=== PATIENT | male | born 1975 | race Caucasian/White ===

== ENCOUNTER 2017-04-13 19:56 | Emergency (ER) | payer MEDICAID | END 2017-04-13 23:00 | disposition left against medical advice (07) | LOC: ER 22:02 | DX: Z53.21 Procedure and treatment not carried out due to patient leaving prior to being seen by health care provider (principal) ==

== ENCOUNTER 2017-06-09 09:22 | Emergency (ER) | payer MEDICAID ==
[~2017-06-09] VITALS: Ht 177.8 cm; Wt 84.0 kg
[2017-06-09 10:01] LABS: BASOPHILS % 0.5 % (0.0-2.0); EOSINOPHILS % 10.3 % (0.0-5.0); HEMATOCRIT. 39.7 % (42.0-52.0); LYMPHOCYTES % 17.1 % (20.0-50.0); MEAN CORPUSCULAR HEMOGLOBIN 33.2 pg (28.0-32.0); MEAN CORPUSCULAR VOLUME 94.2 fL (80.0-94.0); MEAN PLATELET VOLUME 9.2 fl (7.4-10.4); MONOCYTES % 6.8 % (2.0-8.0); NEUTROPHILS % 65.3 % (40.0-76.0); PLATELET 175 x1000/uL (130-400); RED BLOOD CELL COUNT 4.21 mill/uL (4.7-6.1); RED CELL DISTRIBUTION WIDTH 13.7 % (11.6-14.6)
[2017-06-09 10:09] LABS: PROTHROMBIN TIME 10.8 sec (9.4-11.6)
[2017-06-09 10:18] LABS: CARBON DIOXIDE 24 mEq/L (21-32); CHLORIDE 109 mEq/L (98-107); ETHANOL BLOOD < 10 mg/dL
[2017-06-09 10:20] LABS: TROPONIN I < 0.02 ng/mL (0.00-0.04)
[2017-06-09 11:06] LABS: CLARITY URINE CLEAR (CLEAR); COLOR URINE YELLOW (YELLOW); GLUCOSE URINE NEGATIVE (NEGATIVE); KETONES URINE NEGATIVE (NEGATIVE); LEUKOCYTE ESTERASE URINE NEGATIVE (NEGATIVE); NITRITE URINE NEGATIVE (NEGATIVE); OCCULT BLOOD URINE NEGATIVE (NEGATIVE); PROTEIN URINE NEGATIVE (NEGATIVE); SPECIFIC GRAVITY URINE 1.009 (1.005-1.030); UROBILINOGEN URINE 0.2 E.U./dL (0.2-1.0)
[2017-06-09 11:23] LABS: *AMPHETAMINES SCREEN URINE NEGATIVE (NEGATIVE); *BARBITURATES SCREEN URINE NEGATIVE (NEGATIVE); *BENZODIAZEPINES SCREEN URINE NEGATIVE (NEGATIVE); *COCAINE SCREEN URINE NEGATIVE (NEGATIVE); CANNABINOID URINE SCREEN NEGATIVE (NEGATIVE); METHADONE URINE SCREEN NEGATIVE (NEGATIVE); OPIATES URINE SCREEN NEGATIVE (NEGATIVE); PHENCYCLIDINE URINE SCREEN NEGATIVE (NEGATIVE)
[2017-06-09 12:16] VITALS: BP 142/83
== END 2017-06-09 12:17 | disposition home or self-care (01) ==
LOC: ER 09:42
DX: T39.315A Adverse effect of propionic acid derivatives, initial encounter (principal); F17.200 Nicotine dependence, unspecified, uncomplicated; Z88.8 Allergy status to other drugs, medicaments and biological substances; Y92.89 Other specified places as the place of occurrence of the external cause
CPT/HCPCS: 36415; 80053; 80305; 80307; 80329; 81003; 84484; 85025; 85610; 93005; 99285; G0482; Z7610

== ENCOUNTER 2019-08-31 13:03 | Emergency (ER) | payer MEDICAID ==
[~2019-08-31] VITALS: Ht 198.1 cm; Wt 125.0 kg
[2019-08-31] MEDS ORDERED: DEXTROSE 50% WATER 50ML SYRINGE IV ONE (16:00)
[2019-08-31 17:21] LABS: BASOPHILS % 0.6 % (0.0-2.0); EOSINOPHILS % 7.5 % (0.0-5.0); HEMATOCRIT. 41.9 % (42.0-52.0); HEMOGLOBIN. 14.1 g/dL (14.0-18.0); LYMPHOCYTES % 33.6 % (20.0-50.0); MEAN CORPUSCULAR HEMOGLOBIN 31.2 pg (28.0-32.0); MEAN CORPUSCULAR VOLUME 92.6 fL (80.0-94.0); MEAN PLATELET VOLUME 9.1 fl (7.4-10.4); MONOCYTES % 6.1 % (2.0-8.0); NEUTROPHILS % 52.2 % (40.0-76.0); PLATELET 206 x1000/uL (130-400); RED BLOOD CELL COUNT 4.52 mill/uL (4.7-6.1); RED CELL DISTRIBUTION WIDTH 13.7 % (11.6-14.6)
[2019-08-31 17:28] LABS: CHLORIDE 113 mEq/L (98-107)
[2019-08-31 18:31] VITALS: BP 130/80
== END 2019-08-31 18:35 | disposition left against medical advice (07) ==
LOC: ER 14:36 → CANBEDREQ 18:52
DX: E16.2 Hypoglycemia, unspecified (principal)
CPT/HCPCS: 36415; 71045; 80053; 82962; 83605; 84145; 84484; 85025; 93005; 99284

== ENCOUNTER 2019-10-30 07:29 | Emergency (ER) | payer MEDICAID ==
[~2019-10-30] VITALS: Ht 182.9 cm; Wt 150.0 kg
[2019-10-30] MEDS ORDERED: MORPHINE SULFATE 4 MG/ML CPJ (NOT FOR IM USE) IV ONE (08:15)
[2019-10-30 08:45] LABS: BASOPHILS % 0.7 % (0.0-2.0); HEMATOCRIT. 39.7 % (42.0-52.0); HEMOGLOBIN. 13.8 g/dL (14.0-18.0); LYMPHOCYTES % 27.5 % (20.0-50.0); MEAN CORPUSCULAR HEMOGLOBIN 31.4 pg (28.0-32.0); MEAN CORPUSCULAR VOLUME 90.9 fL (80.0-94.0); MEAN PLATELET VOLUME 9.4 fl (7.4-10.4); MONOCYTES % 8.3 % (2.0-8.0); NEUTROPHILS % 54.5 % (40.0-76.0); PLATELET 184 x1000/uL (130-400); RED BLOOD CELL COUNT 4.37 mill/uL (4.7-6.1); RED CELL DISTRIBUTION WIDTH 13.8 % (11.6-14.6)
[2019-10-30 08:52] LABS: CHLORIDE 112 mEq/L (98-107)
[2019-10-30 13:00] VITALS: BP 122/76
== END 2019-10-30 13:19 | disposition home or self-care (01) ==
LOC: ER 07:29
DX: R07.89 Other chest pain (principal); J45.909 Unspecified asthma, uncomplicated; G40.909 Epilepsy, unspecified, not intractable, without status epilepticus; Z88.8 Allergy status to other drugs, medicaments and biological substances
CPT/HCPCS: 36415; 71045; 80053; 83880; 84484; 85025; 93005; 99285

== ENCOUNTER 2022-08-01 18:27 | Emergency (ER) | payer MEDICAID ==
[~2022-08-01] VITALS: Ht 188 cm; Wt 105.0 kg
[2022-08-01 18:43] VITALS: BP 119/63
== END 2022-08-01 23:42 | disposition left against medical advice (07) ==
LOC: ER 18:27
DX: Z53.21 Procedure and treatment not carried out due to patient leaving prior to being seen by health care provider (principal)

== ENCOUNTER 2023-01-28 02:59 | Emergency (ER) | payer MEDICAID ==
[~2023-01-28] VITALS: Ht 198.1 cm; Wt 148.0 kg
[2023-01-28 03:36] VITALS: O2SAT 99
[2023-01-28 06:43] LABS: EOSINOPHILS % 10.2 % (0.0-5.0); HEMATOCRIT. 41.1 % (42.0-52.0); HEMOGLOBIN. 13.9 g/dL (14.0-18.0); LYMPHOCYTES % 40.4 % (20.0-50.0); MEAN CORPUSCULAR HEMOGLOBIN 32.1 pg (28.0-32.0); MEAN CORPUSCULAR VOLUME 94.9 fL (80.0-94.0); MEAN PLATELET VOLUME 9.3 fl (7.4-10.4); MONOCYTES % 6.6 % (2.0-8.0); NEUTROPHILS % 41.8 % (40.0-76.0); PLATELET 183 x1000/uL (130-400); RED BLOOD CELL COUNT 4.34 mill/uL (4.7-6.1); RED CELL DISTRIBUTION WIDTH 14.2 % (11.6-14.6)
[2023-01-28 06:52] LABS: CHLORIDE 113 mEq/L (98-107)
[2023-01-28 07:24] VITALS: BP 115/66; PULSE 46; RESP 16; TEMP 98.6
== END 2023-01-28 07:32 | disposition home or self-care (01) ==
LOC: ER 02:59
DX: R00.1 Bradycardia, unspecified (principal); R20.2 Paresthesia of skin; J45.909 Unspecified asthma, uncomplicated; Z98.890 Other specified postprocedural states
CPT/HCPCS: 36415; 71045; 80053; 84484; 85025; 93005; 99285

== ENCOUNTER 2023-04-25 19:51 | Emergency (ER) | payer MEDICAID, OTHER ==
[~2023-04-25] VITALS: Ht 198.1 cm; Wt 137.0 kg
[2023-04-25 20:10] VITALS: O2SAT 96
[2023-04-25 21:09] VITALS: TEMP 98.6
[2023-04-25] MEDS ORDERED: METH-653 MT (21:13)
[2023-04-25] MEDS ORDERED: IBUPROFEN 600MG TABLET PO ONE (21:15)
[2023-04-25 21:37] VITALS: BP 116/72; PULSE 59; RESP 16
== END 2023-04-25 21:39 | disposition home or self-care (01) ==
LOC: ER 19:51
DX: M54.50 Low back pain, unspecified (principal); J45.909 Unspecified asthma, uncomplicated; F20.9 Schizophrenia, unspecified; Z98.890 Other specified postprocedural states
CPT/HCPCS: 99283

== ENCOUNTER 2023-05-15 17:00 | Emergency (ER) | payer OTHER ==
[~2023-05-15] VITALS: Ht 198.1 cm; Wt 137.9 kg
[~2023-05-15 17:00] MED LIST: METH-653 MT
[2023-05-15 17:11] VITALS: BP 131/80; PULSE 81; RESP 16; TEMP 98.2; O2SAT 97
[2023-05-15] MEDS ORDERED: ONDANSETRON 4MG ODT PO ONE (17:45)
[2023-05-15] MEDS ORDERED: GLUCAGON,HUMAN RECOMBINANT 1MG/VIAL IM ONE (17:45)
[2023-05-15 18:09] LABS: BASOPHILS % 0.9 % (0.0-2.0); EOSINOPHILS % 12.3 % (0.0-5.0); HEMATOCRIT. 40.5 % (42.0-52.0); LYMPHOCYTES % 36.6 % (20.0-50.0); MEAN CORPUSCULAR HEMOGLOBIN 32.5 pg (28.0-32.0); MEAN CORPUSCULAR HGB CONC 34.4 g/dL (31.0-37.0); MEAN CORPUSCULAR VOLUME 94.2 fL (80.0-94.0); MEAN PLATELET VOLUME 8.9 fl (7.4-10.4); MONOCYTES % 5.7 % (2.0-8.0); NEUTROPHILS % 44.5 % (40.0-76.0); PLATELET 183 x1000/uL (130-400); RED CELL DISTRIBUTION WIDTH 13.8 % (11.6-14.6); WHITE BLOOD COUNT 7.1 x1000/uL (4.5-11.0)
[2023-05-15 18:18] LABS: CHLORIDE 112 mEq/L (98-107); INDEX HEMOLYSI 1 (1-3); INDEX ICTERIC 1 (1-4); INDEX LIPEMIC 1 (1-3); POTASSIUM 3.4 mEq/L (3.5-5.1); SODIUM 139 mEq/L (136-145)
[2023-05-15 18:21] LABS: CALCIUM 8.6 mg/dL (8.5-10.1); GLUCOSE 134 mg/dL (70-105); UREA NITROGEN BLOOD 18 mg/dL (7-21)
[2023-05-15 18:26] LABS: ALANINE AMINOTRANSFERASE 31 IU/L (13-61); ASPARTATE AMINOTRANSFERASE 25 IU/L (15-37); BILIRUBIN TOTAL 0.4 mg/dL (0.1-1.0); CARBON DIOXIDE 21 mEq/L (21-32); CREATININE 0.8 mg/dL (0.6-1.3); PROTEIN TOTAL 7.5 g/dL (6.0-8.3)
[2023-05-15 18:28] LABS: PROTHROMBIN TIME 10.5 sec (9.6-11.0)
== END 2023-05-15 19:51 | disposition home or self-care (01) ==
LOC: ER 17:06
DX: T18.128A Food in esophagus causing other injury, initial encounter (principal); F20.9 Schizophrenia, unspecified; J45.909 Unspecified asthma, uncomplicated; Z88.8 Allergy status to other drugs, medicaments and biological substances; X58.XXXA Exposure to other specified factors, initial encounter; Y93.89 Activity, other specified; Y92.89 Other specified places as the place of occurrence of the external cause; Y99.8 Other external cause status
CPT/HCPCS: 36415; 80053; 85025; 86850; 86900; 99283

== ENCOUNTER 2023-10-27 19:48 | Emergency (ER) | payer OTHER ==
[~2023-10-27] VITALS: Ht 188 cm; Wt 118.0 kg
[2023-10-27 19:55] VITALS: O2SAT 98
[2023-10-27] MEDS ORDERED: FLAS1EAC2 TP (21:57)
[2023-10-27 22:18] VITALS: BP 132/76; PULSE 71; RESP 16; TEMP 98.3
== END 2023-10-27 22:19 | disposition home or self-care (01) ==
LOC: ER 20:02
DX: E11.649 Type 2 diabetes mellitus with hypoglycemia without coma (principal); I10 Essential (primary) hypertension; E78.00 Pure hypercholesterolemia, unspecified; J45.909 Unspecified asthma, uncomplicated; Z76.0 Encounter for issue of repeat prescription; Z98.890 Other specified postprocedural states
CPT/HCPCS: 82962; 99281